=== PATIENT | female | born 1945 ===

== ENCOUNTER 2020-07-31 07:00 | Day surgery (SDC) | payer OTHER ==
[~2020-07-31 07:00] MED LIST: CLONAZEPAM0.5 MG PO; FOSAMAX70 MG PO; GABAPENTIN300 M2 PO; GLIMEPIRIDE2 MG; LANOXIN125 MCG PO; LEVO-T25 MCG PO; LOSARTAN POTASS50 MG PO; METFORMIN HCL1000 M2 PO; RESTORIL30 M1 PO; SIMVASTATIN40 MG PO; TOPROL XL100 M1 PO; XARELTO20 MG PO
[2020-07-31] MEDS ORDERED: ULTRACET PO (12:02)
[2020-07-31] MEDS ORDERED: MACROBID 100 M100 MG PO (12:03)
== END 2020-07-31 15:50 | disposition home or self-care (01) ==
LOC: CIR.AMB 07:00
PROVIDERS: ATTEND Obstetrics & Gynecology Gynecology
DX: N81.3 Complete uterovaginal prolapse (principal); Z20.828 Contact with and (suspected) exposure to other viral communicable diseases